=== PATIENT | male | born 1955 | race Caucasian/White ===

== ENCOUNTER 2021-07-12 21:46 | Emergency (ER) | payer BC, MEDICARE ==
[~2021-07-12] VITALS: Ht 172.7 cm; Wt 111.1 kg
[2021-07-13] MEDS ORDERED: CYCL10 PO (01:36)
[2021-07-13] MEDS ORDERED: IBUP600 PO (01:36)
== END 2021-07-13 02:06 | disposition home or self-care (01) ==
LOC: ER 21:46
DX: M54.50 Low back pain, unspecified (principal)
CPT/HCPCS: 72100; 96372; 99283-25; A9270; J1885

== ENCOUNTER 2021-12-07 07:46 | Day surgery (SDC) | payer BC, MEDICARE ==
[~2021-12-07] VITALS: Ht 172.7 cm; Wt 107.0 kg
[~2021-12-07 07:46] MED LIST: CYCL10 PO; IBUP600 PO
[2021-12-07] MEDS ORDERED: HYDCHL25 (08:12)
== END 2021-12-07 10:20 | disposition home or self-care (01) ==
LOC: ORSCSDS 07:46
PROVIDERS: Internal Medicine Gastroenterology
PROC: 0DBH8ZX Excision of Cecum, Via Natural or Artificial Opening Endoscopic, Diagnostic (ICD-10-PCS; principal; 2021-12-07 09:00)
PROC: 0DBM8ZX Excision of Descending Colon, Via Natural or Artificial Opening Endoscopic, Diagnostic (ICD-10-PCS; principal; 2021-12-07 09:00)
DX: Z12.11 Encounter for screening for malignant neoplasm of colon (principal); D12.0 Benign neoplasm of cecum; D12.4 Benign neoplasm of descending colon; Z85.46 Personal history of malignant neoplasm of prostate; E11.9 Type 2 diabetes mellitus without complications; Z86.19 Personal history of other infectious and parasitic diseases; Z87.891 Personal history of nicotine dependence; E66.9 Obesity, unspecified; Z68.37 Body mass index [BMI] 37.0-37.9, adult; Z79.84 Long term (current) use of oral hypoglycemic drugs; Z79.899 Other long term (current) drug therapy
CPT/HCPCS: 82947; J2704; J7120

== ENCOUNTER 2025-01-12 09:51 | Day surgery (SDC) | payer MEDICARE ==
[~2025-01-12] VITALS: Ht 172.7 cm; Wt 111.1 kg
[~2025-01-12 09:51] MED LIST changes: +HYDCHL25
[2025-01-12] MEDS ORDERED: METF500 (11:09)
[2025-01-12] MEDS ORDERED: VALS80 (11:09)
[2025-01-12 13:09] VITALS: BP 101/88
== END 2025-01-12 12:59 | disposition home or self-care (01) ==
LOC: ORSCSDS 09:51
PROVIDERS: Specialist
PROC: 0DBL8ZX Excision of Transverse Colon, Via Natural or Artificial Opening Endoscopic, Diagnostic (ICD-10-PCS; principal; 2025-01-12 11:30)
PROC: 0DBH8ZX Excision of Cecum, Via Natural or Artificial Opening Endoscopic, Diagnostic (ICD-10-PCS; principal; 2025-01-12 11:30)
DX: Z12.11 Encounter for screening for malignant neoplasm of colon (principal); Z86.0100 Personal history of colon polyps, unspecified; D12.0 Benign neoplasm of cecum; D12.3 Benign neoplasm of transverse colon; K64.8 Other hemorrhoids; K64.4 Residual hemorrhoidal skin tags; K57.30 Diverticulosis of large intestine without perforation or abscess without bleeding; E11.9 Type 2 diabetes mellitus without complications; Z87.891 Personal history of nicotine dependence; Z85.46 Personal history of malignant neoplasm of prostate; Z85.89 Personal history of malignant neoplasm of other organs and systems; E66.9 Obesity, unspecified; Z68.36 Body mass index [BMI] 36.0-36.9, adult; Z86.19 Personal history of other infectious and parasitic diseases
CPT/HCPCS: 82947; 88305; J2704; J7120